=== PATIENT | male | born 1980 | race Caucasian/White ===

== ENCOUNTER 2017-04-25 14:19 | Emergency (ER) | payer OTHER ==
[~2017-04-25] VITALS: Ht 177.8 cm; Wt 135.3 kg
[2017-04-25 14:54] LABS: HEMATOCRIT 46.5 % (38.0-50.0); MCH 31.8 PG (29.0-34.0); MCHC 34.2 G/DL (30.0-36.0); MEAN PLAT.VOLUME 10.1 uM^3 (9.0-12.4); PLATELET COUNT 288 K/uL (156-360); WHITE BLOOD COUNT 5.4 K/uL (4.1-10.2)
[2017-04-25 14:57] LABS: ADD MIUA? YES; BILIRUBIN NEGATIVE; BLOOD SMALL; COLOR YELLOW ((YELLOW)); GLUCOSE (STRIP) NEGATIVE; KETONES NEGATIVE; LEUKOCYTES NEGATIVE; NITRITE NEGATIVE; PROTEIN (STRIP) NEGATIVE; SPECIFIC GRAVITY 1.018 (1.000-1.030)
[2017-04-25 15:03] LABS: CHLORIDE 112 mEq/L (99-109); POTASSIUM 4.2 mEq/L (3.7-5.4); SODIUM 142 mEq/L (136-147)
[2017-04-25 15:05] LABS: GLUCOSE 108 mg/dL (70-99)
[2017-04-25 15:07] LABS: ANION GAP 7 MEQ/L (2-14); TOTAL BILIRUBIN 0.7 mg/dL (0.0-1.0)
[2017-04-25 15:08] LABS: BACTERIA NONE SEEN /HPF; EPITHELIAL CELLS NONE SEEN /HPF; MUCUS TRACE /LPF; UCUL ADDED? NO; WHITE BLOOD CELLS 0-5 /HPF (0-5)
[2017-04-25 15:09] LABS: ALKALINE PHOSPHATASE 103 IU/L (3-129); GFR ESTIMATE (CALCULATED) > 59 mL/min/
[2017-04-25 15:10] LABS: UREA NITROGEN (BUN) 10 mg/dL (9-23)
[2017-04-25 15:12] LABS: LIPASE 123 U/L (1.0-51.0)
[2017-04-25] MEDS ORDERED: ZOFRAN4 MG PO (17:51)
[2017-04-25 18:07] VITALS: BP 142/106
== END 2017-04-25 18:09 | disposition home or self-care (01) ==
LOC: EME 14:19
DX: R19.7 Diarrhea, unspecified (principal); R10.9 Unspecified abdominal pain
CPT/HCPCS: 74020; 76705; 80053; 81003; 83690; 85027; 99281; 99284

== ENCOUNTER 2017-07-07 05:35 | Day surgery (SDC) | payer OTHER ==
[~2017-07-07] VITALS: Ht 177.8 cm; Wt 137.4 kg
[~2017-07-07 05:35] MED LIST: ZOFRAN4 MG PO
[2017-07-07 06:06] VITALS: BP 119/71
[2017-07-07] MEDS ORDERED: COLACE100 MG PO (09:11)
[2017-07-07] MEDS ORDERED: ONDANSETRON HCL8 MG PO (09:11)
[2017-07-07] MEDS ORDERED: DILAUDID4 MG PO (09:11)
[2017-07-07 10:46] VITALS: BP 129/74
[2017-07-07 11:22] VITALS: BP 112/84
[2017-07-07 12:00] VITALS: BP 112/57
== END 2017-07-07 12:00 | disposition home or self-care (01) ==
LOC: SDC 05:35
DX: K42.0 Umbilical hernia with obstruction, without gangrene (principal); E66.01 Morbid (severe) obesity due to excess calories; Z68.41 Body mass index [BMI] 40.0-44.9, adult; K66.0 Peritoneal adhesions (postprocedural) (postinfection); L30.9 Dermatitis, unspecified; Z80.8 Family history of malignant neoplasm of other organs or systems; Z81.8 Family history of other mental and behavioral disorders; Z80.41 Family history of malignant neoplasm of ovary
CPT/HCPCS: C1781; J0330; J1100; J1170; J1885; J2001; J2250; J2405; J2795; J3010; J3475